=== PATIENT | female | born 1985 | race African-American/Black ===

== ENCOUNTER 2020-11-26 00:54 | Emergency (ER) | payer OTHER ==
[2020-11-26 01:25] VITALS: BP 129/83; PULSE 83; TEMP 98.1; BMI 25.7
[2020-11-26] MEDS ORDERED: MAG HYDROX/AL HYDROX/SIMETH -MYLANTA- ORAL SUSPENSION PO ONE (03:00)
[2020-11-26] MEDS ORDERED: FAMOTIDINE 20 MG TABLET PO ONE (03:00)
[2020-11-26] MEDS ORDERED: FAMOTIDINE 20 MG TABLET ONE (03:26)
[2020-11-26] MEDS ORDERED: MAG HYDROX/AL HYDROX/SIMETH 30 ML UNIT-DOSE CUP ONE (03:27)
[2020-11-26 03:40] LABS: BASO % 0.8 % (0-2.0); EOS % 5.1 % (0-4.5); HEMOGLOBIN 13.2 GM/dL (10.7-15.3); LYMPH % 32.2 % (8-40); MCH 31.7 pg (25.7-33.7); MCHC 33.9 g/dl (32.0-36.0); MEAN CELL VOLUME 93.4 fl (80-96); MEAN PLT VOLUME 6.9 fl (7.5-11.1); MONO % 4.8 % (3.8-10.2); NEUT % 57.1 % (42.8-82.8); PLATELET COUNT 291 10^3/uL (134-434); RBC 4.17 M/mm3 (3.60-5.2); RDW 12.7 % (11.6-15.6); WHITE BLOOD COUNT 7.7 K/mm3 (4.0-10.0)
[2020-11-26 03:57] LABS: CHLORIDE 106 mmol/L (98-107); SODIUM 140 mmol/L (136-145)
[2020-11-26 04:00] LABS: ALBUMIN 3.8 g/dl (3.4-5.0); ANION GAP 5 MMOL/L (8-16); BLOOD UREA NITROGEN 6.6 mg/dL (7-18); CALCIUM 8.9 mg/dL (8.5-10.1); CO2 29 mmol/L (21-32); GLUCOSE,RANDOM 86 mg/dL (74-106)
[2020-11-26 04:03] LABS: CREATININE 0.8 mg/dL (0.55-1.3); SGOT/AST 11 U/L (15-37); SGPT/ALT 19 U/L (13-61)
[2020-11-26 04:05] LABS: BILIRUBIN,TOTAL 0.4 mg/dL (0.2-1); TOT PROT 7.6 g/dl (6.4-8.2)
[2020-11-26 04:06] LABS: ALK PHOS 55 U/L (45-117)
== END 2020-11-26 05:11 | disposition home or self-care (01) ==
LOC: JER 00:54
DX: R07.9 Chest pain, unspecified (principal)
CPT/HCPCS: 36415; 71046-TC-FY; 80053; 82550; 84484; 84703; 85025; 93005; 93010; 99285-25